=== PATIENT | female | born 1975 | race Caucasian/White ===

== ENCOUNTER 2020-08-17 09:29 | Outpatient (CLI) | payer OTHER, SELFPAY ==
--- NOTE | ~2020-08-17 | MM_ITS ---
EXAMINATION: MM screening priscilla BI w luzma HISTORY: Screening TECHNIQUE: Craniocaudal and mediolateral oblique 3-D tomosynthesis images were obtained and synthetic 2-D images were generated. CAD analysis was submitted and interpreted. COMPARISON: Comparison to multiple prior studies sequentially, with oldest reviewed study dated 12/2013. BREAST PARENCHYMAL COMPOSITION: The breasts are heterogenously dense, which may obscure small masses. FINDINGS: There is no evidence of suspicious mass, calcification, or architectural distortion to sugg est malignancy in either breast. There has been no suspicious interval change. IMPRESSION: 1. No mammographic evidence of malignancy. 2. Recommend routine screening mammography in one year. BI-RADS Category 1: Negative Reviewed, dictated and finalized at location A. [employer]
== END 2020-08-17 09:30 | disposition home or self-care (01) ==
LOC: ANHIMG 09:31
PROVIDERS: PCP Internal Medicine; Visit Provider Obstetrics & Gynecology
DX: Z12.31 Encounter for screening mammogram for malignant neoplasm of breast (principal)
CPT/HCPCS: 77063; 77067

== ENCOUNTER 2020-10-17 09:31 | Emergency (ER) | payer OTHER, SELFPAY ==
--- NOTE | ~2020-10-17 | XR_ITS ---
XR chest 2V DATE: 10/17/2020 10:08 INDICATION: Lower right abdominal pain TECHNIQUE: PA and lateral views COMPARISON: 05/06/2012 PA and lateral chest FINDINGS: Normal heart size. No hilar or mediastinal enlargement. No pulmonary infiltrate or consolid ation, pleural effusion or pulmonary vascular congestion or pneumothorax is detected. Mild thoracic scoliosis. IMPRESSION: No active cardiopulmonary disease Reviewed, dictated and finalized at location A.
--- NOTE | ~2020-10-17 | CT_ITS ---
EXAMINATION: CTA chest PE abdomen pel DATE: 10/17/2020 11:48 INDICATION: Mid chest pain, low abdominal pain. TECHNIQUE: Computed tomography angiography (CTA) of the chest and abdomen was performed with 100 mL O mnipaque-350 intravenous contrast timed to evaluate the pulmonary arteries. Coronal maximum intensity projection 3D-reconstructions were created by the technologist. Automated exposure control and itera tive reconstruction technique were employed. Exam dose: 542.15 mGy-cm total exam DLP. COMPARISON: 10/17/2020 PA and lateral chest FINDINGS: There is diagnostic contrast enhancement of the pulmonary arteries and no evidence of pulmo nary embolism. No thoracic aortic aneurysm or dissection. Normal heart size. Coronary artery calcification. No hilar or mediastinal mass lesion or lymphadenopathy. There is old pulmonary granulomatous disease including calcified left lower lobe pulmonary granulomas , calcified left hilar and mediastinal nodes. No pulmonary infiltrate or consolidation or pulmonary mass lesion. Minimal bilateral apical scarring. The liver, gallbladder, bile ducts, spleen, pancreas, pancreatic duct, and adrenal glands and right k idney are unremarkable. There are scattered up to 8 mm left renal cysts. No urinary tract calculus or hydroureteronephrosis. Normal caliber of the abdominal aorta. No intraperitoneal or retroperitoneal or pelvic mass lesion or adenopathy or ascites. (Measuring up to approximately 1.7 cm. Involuting 1.3 cm right ovarian cyst. The uterus and urinary b ladder are unremarkable. Normal appendix. No bowel obstruction, bowel wall thickening, pneumatosis or intraperitoneal free air . Included skeletal structures are unremarkable. IMPRESSION: Scattered up to 8 mm left renal cysts Up to 1.7 cm left ovarian cyst Involuting 1.3 cm right ovarian cyst Normal appendix Reviewed, dictated and finalized at Location A. Reviewed, dictated and finalized at location A.
--- NOTE | 2020-10-17 09:36 | ECG_ITS ---
Measurements Intervals [place] Rate: 88 P: 82 MT: 128 QRS: 55 QRSD: 86 T: 58 QT: 330 QTc: 399 Interpretive Statements SINUS RHYTHM BASELINE ARTIFACT- II, III, AVL, AVF NORMAL ECG Electronically Signed On 10-17-2020 19:12:36 CDT by Jose A Guevara D.O.
[2020-10-17 09:37] VITALS: BP 171/110; PULSE 100; RESP 20; TEMP 36.8; O2SAT 100
[2020-10-17] MEDS: ASPIRIN 81 MG CHEWABLE TABLET 324 MG PO (09:43)
[2020-10-17 09:53] LABS: Basophils Percent Auto 0.4 % (0.2-1.2); Eosinophils Absolute Auto 0.1 K/mm3 (0-0.3); Eosinophils Percent Auto 0.9 % (0-4.4); Hematocrit 43.2 % (37.0-47.0); Hemoglobin 14.6 g/dL (12.0-15.0); Immature Granulocyte Absolute 0.05 K/mm3 (0.00-0.031); Immature Granulocyte Percent A 0.5 % (0-0.5); Lymphocytes Absolute Auto 3.14 K/mm3 (0.9-3.2); Lymphocytes Percent Auto 32.3 % (18.3-44.2); Mean Corpuscular HGB Conc 33.8 g/dl (32-36); Mean Corpuscular Volume 103.6 fl (80-100); Mean Platelet Volume 10.5 fl (7.4-10.4); Monocytes Absolute Auto 0.9 K/mm3 (0.1-0.6); Monocytes Percent Auto 9.7 % (2.6-8.5); Neutrophils Absolute Auto 5.5 K/mm3 (1.3-6.7); Neutrophils Percent Auto 56.2 % (45.5-73.1); Platelet Count Result 169 k/mm3 (150-375); Red Blood Count 4.17 M/mm3 (4.2-5.4); Red Cell Distribution Width 12.4 % (11.5-14.5); White Blood Count 9.7 K/mm3 (4.5-10.0)
[2020-10-17 10:07] LABS: INR 0.8; Prothrombin Time 12.1 Seconds (11.1-14.7)
[2020-10-17 10:09] LABS: Lipase 90 U/L (23-300)
[2020-10-17 10:13] LABS: Add Urine Microscopic? YES; Appearance Urine Clear (Clear); Bilirubin Urine Negative (Negative); Blood Urine Negative (Negative); Color Urine Yellow (Yellow); Glucose Urine UA Negative (Negative); Ketones Urine Trace mg/dL (Negative); Leukocyte Esterase Ur Negative LEU/UL (Negative); Mucus Urine Rare /lpf; Nitrate Urine Negative (Negative); Protein Urine Negative (Negative); RBC Urine 0-2 /hpf (0-2); Specific Grav Ur 1.009 (1.001-1.035); Squamous Epithelial Cell Urine Occasional /hpf (Few); Urobilinogen Urine Negative mg/dL (<2.0); WBC Urine 0-3 /hpf
[2020-10-17 10:14] LABS: Partial Thromboplastin Time 28.7 SECONDS (22.3-36.8)
[2020-10-17 10:15] LABS: Troponin I < 0.012 ng/mL (0.000-0.034)
[2020-10-17 10:56] LABS: Alanine Aminotransferase 28 U/L (4-35); Albumin Level 4.9 g/dL (3.5-5.1); Alkaline Phosphatase 72 U/L (38-126); Anion Gap 10 mmol/L (8-16); Aspartate Amino Transferase 48 U/L (14-36); Bilirubin,Total 0.8 mg/dL (0.2-1.3); Blood Urea Nitrogen 12 mg/dL (7-17); Carbon Dioxide 25 mmol/L (22-30); Chloride 102 mmol/L (98-107); Estimated CRCL calculation 96 ml/min; Estimated Glomerular Filt Rate > 60; Glucose 107 mg/dL (65-105); Potassium 3.9 mmol/L (3.4-5.0); Sodium 137 mmol/L (137-145)
--- NOTE | 2020-10-17 11:26 | ED.GENADULT ---
HPI - General Adult General Chief complaint: Chest Pain Stated complaint: chest pain Time Seen by Provider: 10/17/20 10:06 Source: patient Mode of arrival: ambulatory Limitations: no limitations History of Present Illness HPI narrative: Pt presents for evaluation of left sided chest pain for the past few days. Pain occurs three to four times per day and lasts seconds to minutes. Pain is stabbing, without numerical rating. No radicular component to the pain. No shortness of breath, cough, or leg swelling. She states she sees genetic engineer, Dr Fletcher, in [place]. She states she had a negative stress test and ECHO about two years ago. She states that she later had a heart cath that showed 20% stenosis in one of the vessels. She was evaluated by cardiology about 1.5 months ago for chest pain. It was suspected that her symptoms were 2/2 GERD. She was advised to take prilosec and return in one week for reassessment. She did not take the medication nor did she follow up. She does have a history of hyperlipidemia but denies underlying hypertension and DM. She smokes 1/2 ppd. No hx of VTE. No recently surgeries. Not on exogenous estrogen. She also reports RLQ pain for the last week. Pain is fairly constant, without descriptive quality. She denies pain at presents time. No fever, chills, nausea, vomiting, change in bowel pattern. She does drink daily between 4-12 drinks per day. Related Data Home Medications Medication Instructions Recorded Confirmed alprazolam 0.5 mg PO TID 10/17/20 10/17/20 atorvastatin 20 mg PO DAILY 10/17/20 10/17/20 hydrocodone-acetaminophen 1 tablet PO TID 10/17/20 10/17/20 Allergies Allergy/AdvReac Type Severity Reaction Status Date / Time No Known Allergies Allergy Verified 10/17/20 09:45 Review of Systems Review of Systems: Narrative: CONSTITUTIONAL: Denies fever, chills, or sweats. EYES: Denies visual changes, redness, or discharge. ENT: Denies rhinorrhea, congestion, sore throat, or otalgia. CARDIOVASCULAR: Reports chest pain. Denies palpitations, or edema. RESPIRATORY: Denies cough or dyspnea. GASTROINTESTINAL: Reports right lower quadrant pain. Denies nausea, vomiting, or diarrhea. GENITOURINARY: Denies dysuria or hematuria. SKIN: Denies rash or itching. MUSCULOSKELETAL: Denies back pain, joint pain, or myalgia. NEUROLOGIC: Denies headache, numbness, dizziness, or weakness. PSYCHIATRIC: Denies anxiety or depression. PMF Past Medical History Medical History Hyperlipidemia Tobacco use Surgical History Surgical History History of section Family History Family History Mother No pertinent family history Social History Social History Smoking packs per day: 0.5 Smoking cigarettes per day: 10.0 Smoking status: Current every day smoker Alcohol intake: current Alcohol use details: 4-12 drinks per day Substance use: never Living arrangements: with family Gender identity (if verbalized by the patient): Female Sexual Orientation (if Verbalized by the Patient): Straight or Heterosexual Spiritual care concerns: No Exam Narrative: Exam Narrative: GENERAL: Well-appearing, well-nourished, and in no acute distress. HEAD: Normocephalic, atraumatic. EYES: PERRLA and EOMI. ENT: Nares clear, no rhinorrhea or epistaxis. Mucous membranes moist. Oropharynx without tonsillar hypertrophy exudate or other lesions. Bilateral TMs pearly germain nonbulging NECK: Supple. No adenopathy or masses. No carotid bruits or JVD CHEST: Clear to auscultation. No respiratory distress. No wheezes rales or rhonchi HEART: Regular rate and rhythm. No murmur heard. Normal peripheral pulses. ABDOMEN: Soft, nontender, nondistended, normal active bowel sounds. EXTREMITIES: Normal range of motion. N
[2020-10-17] MEDS: PANTOPRAZOLE 40 MG TABLET PO (11:54)
[2020-10-17 12:19] VITALS: BP 124/90; PULSE 82; O2SAT 100
--- NOTE | 2020-10-17 12:19 | PC.NURSE ---
Patient in room finishing snack that significant other brought to her.
[2020-10-17 13:10] LABS: Troponin I < 0.012 ng/mL (0.000-0.034)
[2020-10-17 13:48] VITALS: BP 118/88; PULSE 82; RESP 20; O2SAT 99
== END 2020-10-17 13:50 | disposition home or self-care (01) ==
PROVIDERS: Emergency Medicine; Emergency Provider Nurse Practitioner; PCP Internal Medicine
DX: R07.9 Chest pain, unspecified (principal); N83.202 Unspecified ovarian cyst, left side; N83.201 Unspecified ovarian cyst, right side; K21.9 Gastro-esophageal reflux disease without esophagitis; R10.31 Right lower quadrant pain; E78.5 Hyperlipidemia, unspecified; F17.210 Nicotine dependence, cigarettes, uncomplicated; N28.1 Cyst of kidney, acquired
CPT/HCPCS: 36415; 71046; 71275; 74177; 80053; 81001; 81025; 83690; 84484; 85025; 85610; 85730; 93005; 99284; A9270; Q9967

== ENCOUNTER 2020-11-11 10:05 | Emergency (ER) | payer OTHER, SELFPAY ==
[2020-11-11] VITALS (17 sets, daily range): BP systolic 132–185; BP diastolic 76–92; PULSE 63–89; RESP 11–21; TEMP 36.5; O2SAT 99–100
--- NOTE | ~2020-11-11 | XR_ITS ---
EXAMINATION: XR chest 2V DATE: 11/11/2020 12:37 INDICATION: Right chest pain. Shortness of breath. TECHNIQUE: Frontal and lateral views of the chest were obtained. COMPARISON: Chest 2 views 10/17/2020 FINDINGS: A calcified left lung nodule and calcified left hilar lymph nodes are consistent with old g ranulomatous disease. No pleural effusion or pneumothorax. The heart size is normal. IMPRESSION: 1. No acute cardiopulmonary disease. Reviewed, dictated and finalized at location B.
--- NOTE | ~2020-11-11 | CT_ITS ---
EXAMINATION: CT abdomen pelvis w con DATE: 11/11/2020 13:52 INDICATION: Upper abdominal pain. TECHNIQUE: Computed tomography (CT) of the abdomen and pelvis was performed with 100 mL Omnipaque 350 intravenous contrast. Automated exposure control and iterative reconstruction technique were employe d. The dose-length product was 386.62 mGy-cm. COMPARISON: CT abdomen and pelvis 10/17/2020 FINDINGS: The visualized portions of the lung bases demonstrate minimal atelectasis. No pleural effus ion. The heart size is normal. No pericardial effusion. The liver and gallbladder are normal. Calcifi cations in the spleen are consistent with old granulomatous disease. The pancreas, adrenal glands, an d right kidney are normal. There are cysts in left kidney measuring up to 7 mm. There are no dilated loops of bowel. The appendix is normal. Again seen are 2 diverticula of the proximal duodenum. There is new wall thickening of the proximal duodenum. There is mild wall thickening of the nearby hepatic flexure of the colon. There is fat stranding between and around both of these areas. There is trace p elvic ascites. There are no pathologically enlarged lymph nodes. There is moderate right hip osteoart hritis and mild left hip osteoarthritis. IMPRESSION: 1. Inflammation of the proximal duodenum and hepatic flexure of the colon, which are in close proximi ty. The duodenum is more involved suggesting these findings began as duodenitis. Less likely, the ronald gin could be colonic diverticulitis. Reviewed, dictated and finalized at location B. IMPRESSION: 1. Inflammation of the proximal duodenum and hepatic flexure of the colon, whic h are in close proximity. The duodenum is more involved suggesting these findin gs began as duodenitis. Less likely, the origin could be colonic diverticulitis .
--- NOTE | ~2020-11-11 | US_ITS ---
EXAMINATION: US abdomen limited DATE: 11/11/2020 13:18 INDICATION: Right upper quadrant pain TECHNIQUE: Multiple grayscale and Doppler ultrasound images of the abdomen were obtained. COMPARISON: CT, 10/17/2020 FINDINGS: Bowel gas obscures visualization of the pancreas. The visualized portions of the pancreas a re unremarkable. The liver demonstrates increased echogenicity, heterogenous echotexture, and decreas ed through transmission. No surface nodularity. Normal hepatopetal flow in the main portal vein. The gallbladder is normal with no abnormal wall thickening, pericholecystic fluid or stones. The normal c ommon bile duct measures 5 mm. There was no sonographic Barber sign. IMPRESSION: 1. Normal sonographic study of the gallbladder. 2. Diffuse hepatic steatosis. Reviewed, dictated and finalized at location A.
--- NOTE | 2020-11-11 10:15 | ECG_ITS ---
Measurements Intervals [place] Rate: 78 P: 68 [place]: 157 QRS: 52 QRSD: 80 T: 56 QT: 356 QTc: 408 Interpretive Statements SINUS RHYTHM NORMAL ECG Electronically Signed On 11-11-2020 10:17:37 CDT by Jose A Guevara D.O.
[2020-11-11 10:32] LABS: Basophils Percent Auto 0.5 % (0.2-1.2); Eosinophils Absolute Auto 0.1 K/mm3 (0-0.3); Eosinophils Percent Auto 1.2 % (0-4.4); Hematocrit 39.7 % (37.0-47.0); Hemoglobin 13.5 g/dL (12.0-15.0); Immature Granulocyte Absolute 0.02 K/mm3 (0.00-0.031); Immature Granulocyte Percent A 0.2 % (0-0.5); Lymphocytes Absolute Auto 2.38 K/mm3 (0.9-3.2); Lymphocytes Percent Auto 29.2 % (18.3-44.2); Mean Corpuscular Hemoglobin 34.4 pg (26-34); Mean Platelet Volume 11.4 fl (7.4-10.4); Monocytes Absolute Auto 0.6 K/mm3 (0.1-0.6); Monocytes Percent Auto 7.9 % (2.6-8.5); Platelet Count Result 144 k/mm3 (150-375); Red Blood Count 3.93 M/mm3 (4.2-5.4); Red Cell Distribution Width 13.2 % (11.5-14.5); White Blood Count 8.2 K/mm3 (4.5-10.0)
[2020-11-11 10:35] LABS: Add Urine Microscopic? YES; Appearance Urine Clear (Clear); Bilirubin Urine Negative (Negative); Blood Urine Negative (Negative); Color Urine Yellow (Yellow); Glucose Urine UA Negative (Negative); Ketones Urine Negative (Negative); Leukocyte Esterase Ur Negative LEU/UL (Negative); Nitrate Urine Negative (Negative); Protein Urine Negative (Negative); RBC Urine 0-2 /hpf (0-2); Specific Grav Ur 1.017 (1.001-1.035); Squamous Epithelial Cell Urine Moderate /hpf (Few); Urobilinogen Urine Negative mg/dL (<2.0)
[2020-11-11 10:59] LABS: Alanine Aminotransferase 27 U/L (4-35); Albumin Level 4.6 g/dL (3.5-5.1); Alkaline Phosphatase 68 U/L (38-126); Anion Gap 7 mmol/L (8-16); Aspartate Amino Transferase 57 U/L (14-36); Bilirubin,Total 0.7 mg/dL (0.2-1.3); Blood Urea Nitrogen 12 mg/dL (7-17); Calcium 9.4 mg/dL (8.4-10.2); Carbon Dioxide 25 mmol/L (22-30); Chloride 108 mmol/L (98-107); Estimated CRCL calculation 137 ml/min; Estimated Glomerular Filt Rate > 60; Glucose 93 mg/dL (65-105); Lipase 229 U/L (23-300); Potassium 4.7 mmol/L (3.4-5.0); Sodium 140 mmol/L (137-145)
--- NOTE | 2020-11-11 11:28 | ED.ABDPAIN ---
HPI - Abdominal Pain General Chief Complaint: Abdominal Pain Stated Complaint: upper abd pain Time Seen by Provider: 11/11/20 11:08 Source: patient Mode of arrival: ambulatory Limitations: no limitations History of Present Illness HPI narrative: This is a 45-year-old female that presents to the emergency department for upper abdominal pain present since yesterday. Reports the pain is sharp and intermittent in nature. It lasts very briefly. Reports that occasionally radiates into her chest. No known alleviating or exacerbating factors. Reports she was recently started on a medication for reflux. Reports occasional shortness of breath. Denies fever, cough, vomiting, dysuria, or hematuria. Related Data Home Medications Medication Instructions Recorded Confirmed alprazolam 0.5 mg PO TID 10/17/20 10/17/20 atorvastatin 20 mg PO DAILY 10/17/20 10/17/20 hydrocodone-acetaminophen 1 tablet PO TID 10/17/20 10/17/20 Allergies Allergy/AdvReac Type Severity Reaction Status Date / Time No Known Allergies Allergy Verified 11/11/20 10:23 Review of Systems Review of Systems: Narrative: CONSTITUTIONAL: Denies fever CARDIOVASCULAR: Reports chest pain. Denies edema. RESPIRATORY: Reports dyspnea. Denies cough GASTROINTESTINAL: Reports abdominal pain, nausea. Denies vomiting GENITOURINARY: Denies dysuria or hematuria. All systems reviewed & are unremarkable except as noted in HPI and below PMFSH Past Medical History Medical History Hyperlipidemia Tobacco use Surgical History Surgical History History of section Family History Family History Mother No pertinent family history Social History Social History Smoking packs per day: 0.5 Smoking cigarettes per day: 10.0 Smoking status: Current every day smoker Alcohol intake: current Substance use: never Gender identity (if verbalized by the patient): Female Spiritual care concerns: No Exam Narrative: Exam Narrative: GENERAL: Well-appearing, well-nourished, and in no acute distress. HEAD: Normocephalic, atraumatic. EYES: EOMI. ENT: Mucous membranes moist. Oropharynx without tonsillar hypertrophy exudate or other lesions. CHEST: Clear to auscultation. No respiratory distress. No wheezes rales or rhonchi HEART: Regular rate and rhythm. No murmur heard. Normal peripheral pulses. ABDOMEN: Soft, nondistended, normal active bowel sounds. Tender to palpation of the right upper quadrant, without guarding. No CVA tenderness EXTREMITIES: Normal range of motion. No edema. SKIN: Warm, dry, no rash. NEURO: No focal deficits. Alert and oriented x3. PSYCH: Normal mood and affect Course Vital Signs Vital signs: Vital Signs Temperature 97.7 F 11/11/20 10:11 Pulse Rate 88 11/11/20 10:11 Respiratory Rate 18 11/11/20 10:11 Blood Pressure 185/92 H 11/11/20 10:11 Pulse Oximetry 100 11/11/20 10:11 Temperature 97.7 F 11/11/20 10:11 Pulse Rate 78 11/11/20 14:06 Respiratory Rate 18 11/11/20 14:06 Blood Pressure 158/76 H 11/11/20 14:06 Pulse Oximetry 99 11/11/20 14:06 MDM - Abdominal Pain MDM Narrative Medical decision making narrative: Patient presents to the ER for mid abdominal pain present over the last couple of days. She is afebrile and nontoxic-appearing. Vitals are stable. CBC is without leukocytosis. Metabolic panel without concerning findings. Lipase is normal. UA without evidence of infection. Bedside test is negative. D-dimer and troponin are negative. No concerning changes on EKG. Chest x-ray is without acute cardiopulmonary findings. Right upper quadrant ultrasound shows a normal gallbladder and diffuse hepatic steatosis. CT scan of the abdomen pelvis shows duodenitis versus diverticulitis. Patient instructed to continue her pa
[2020-11-11] MEDS: FAMOTIDINE 20 MG/2 ML VIAL IV PUSH (11:42)
[2020-11-11] MEDS: ONDANSETRON INJ 4 MG/2 ML VIAL IV PUSH (11:43)
[2020-11-11 12:13] LABS: Troponin I < 0.012 ng/mL (0.000-0.034)
[2020-11-11 12:15] LABS: INR 0.9; Prothrombin Time 12.9 Seconds (11.1-14.7)
[2020-11-11 12:16] LABS: Partial Thromboplastin Time 29.7 SECONDS (22.3-36.8)
[2020-11-11 12:18] LABS: D Dimer 0.42 ug/mL (<0.48)
== END 2020-11-11 14:32 | disposition home or self-care (01) ==
PROVIDERS: Physician Assistant; Emergency Provider Emergency Medicine; PCP Internal Medicine
DX: K57.92 Diverticulitis of intestine, part unspecified, without perforation or abscess without bleeding (principal); E78.5 Hyperlipidemia, unspecified; F17.210 Nicotine dependence, cigarettes, uncomplicated; K76.0 Fatty (change of) liver, not elsewhere classified
CPT/HCPCS: 36415; 71046; 74177; 76705; 80053; 81001; 81025; 83690; 84484; 85025; 85380; 85610; 85730; 93005; 96365; 96375; 99284; J0131; J2405; Q9967

== ENCOUNTER 2020-12-09 09:16 | Emergency (ER) | payer OTHER, SELFPAY ==
--- NOTE | ~2020-12-09 | CT_ITS ---
EXAMINATION: CT brain wo con INDICATION: Headache COMPARISON: None TECHNIQUE: Standard unenhanced head CT. The dose-length product (DLP) was 605.33 mGy-cm. The mA was a djusted according to patient size. Iterative reconstruction technique was employed. FINDINGS: There is no intracranial hemorrhage, acute infarction, or abnormal mass lesion. The ventric les are normal. There is no abnormal mass effect or midline shift. The germain-white matter differentiat ion is normal. The basal cisterns are patent. A calcification is noted in the right transverse sinus. The orbits are normal. Contrast from earlier abdominal CT partially opacifies the intracranial vascu lar structures. There is a polyp or mucous retention cyst in the right sphenoid sinus. IMPRESSION: 1. No acute intracranial abnormality. Reviewed, dictated and finalized at location A.
--- NOTE | ~2020-12-09 | CT_ITS ---
EXAMINATION: CT abdomen pelvis w con DATE: 12/09/2020 11:25 INDICATION: Right abdominal pain. Bloating. Diarrhea. History of diverticulitis. TECHNIQUE: Computed tomography (CT) of the abdomen and pelvis was performed with 100 cc Omnipaque 350 intravenous contrast. The dose-length product was 243.36 mGy-cm. Automated exposure control and iter ative reconstruction technique were employed. COMPARISON: CT dated 11/11/2020. FINDINGS: Lung bases are unremarkable. Heart size normal. No significant pleural or pericardial effus ion. Mild atherosclerosis of the aorta. No aneurysm. No lymphadenopathy. Fatty infiltration of the liver. The spleen, pancreas, adrenal glands and right kidney are unremarkab le. Small subcentimeter hypodensities of the left kidney, most likely benign cysts. No significant hy dronephrosis. Gallbladder is present. Nonobstructive bowel gas pattern. Normal appendix. No free air or free fluid. No abnormal pelvic mass es or fluid collections. No acute osseous abnormality. There is osteoarthritis of the hips, right gre ater than left. IMPRESSION: 1. No acute abdominal abnormality. Reviewed, dictated and finalized at location B.
[2020-12-09 09:33] VITALS: BP 172/92; PULSE 87; RESP 13; TEMP 36.7; O2SAT 97
[2020-12-09 09:36] VITALS: PULSE 90
[2020-12-09 09:46] LABS: Basophils Absolute Auto 0.1 K/mm3 (0.0-0.1); Basophils Percent Auto 0.7 % (0.2-1.2); Eosinophils Absolute Auto 0.1 K/mm3 (0-0.3); Eosinophils Percent Auto 1.2 % (0-4.4); Hematocrit 42.1 % (37.0-47.0); Hemoglobin 14.3 g/dL (12.0-15.0); Immature Granulocyte Absolute 0.03 K/mm3 (0.00-0.031); Immature Granulocyte Percent A 0.4 % (0-0.5); Lymphocytes Absolute Auto 2.51 K/mm3 (0.9-3.2); Lymphocytes Percent Auto 36.4 % (18.3-44.2); Mean Corpuscular Hemoglobin 34.8 pg (26-34); Mean Corpuscular Volume 102.4 fl (80-100); Mean Platelet Volume 10.5 fl (7.4-10.4); Monocytes Absolute Auto 0.6 K/mm3 (0.1-0.6); Monocytes Percent Auto 8.6 % (2.6-8.5); Neutrophils Absolute Auto 3.6 K/mm3 (1.3-6.7); Neutrophils Percent Auto 52.7 % (45.5-73.1); Platelet Count Result 141 k/mm3 (150-375); Red Blood Count 4.11 M/mm3 (4.2-5.4); Red Cell Distribution Width 13.7 % (11.5-14.5); White Blood Count 6.9 K/mm3 (4.5-10.0)
[2020-12-09] MEDS: SODIUM CHLORIDE 0.9% IV 1,000 ML 999 ML IV CONT (09:59)
[2020-12-09] MEDS: ONDANSETRON INJ 4 MG/2 ML VIAL IV PUSH (10:00)
[2020-12-09 10:01] VITALS: BP 114/74; PULSE 87; RESP 10; O2SAT 94
--- NOTE | 2020-12-09 10:04 | ECG_ITS ---
Measurements Intervals [place] Rate: 78 P: 74 [place]: 137 QRS: 57 QRSD: 81 T: 63 QT: 376 QTc: 429 Interpretive Statements SINUS RHYTHM WITH SINUS ARRHYTHMIA BASELINE WANDER- II, III NORMAL ECG Electronically Signed On 12-09-2020 10:27:29 CDT by Jose A Guevara D.O.
[2020-12-09 10:06] LABS: Alanine Aminotransferase 54 U/L (4-35); Albumin Level 4.9 g/dL (3.5-5.1); Alkaline Phosphatase 99 U/L (38-126); Anion Gap 14 mmol/L (8-16); Aspartate Amino Transferase 140 U/L (14-36); Bilirubin,Total 0.4 mg/dL (0.2-1.3); Blood Urea Nitrogen 11 mg/dL (7-17); Carbon Dioxide 22 mmol/L (22-30); Chloride 105 mmol/L (98-107); Estimated CRCL calculation 113 ml/min; Estimated Glomerular Filt Rate > 60; Glucose 91 mg/dL (65-105); Potassium 4.1 mmol/L (3.4-5.0); Sodium 141 mmol/L (137-145)
--- NOTE | 2020-12-09 10:11 | ED.GENADULT ---
HPI - General Adult General Chief complaint: Unspecified Stated complaint: diarrhea, abd pain, left hand numb Time Seen by Provider: 12/09/20 09:31 Source: patient Mode of arrival: ambulatory Limitations: no limitations History of Present Illness HPI narrative: Patient is a 45 year old female who presents with multiple complaints. Patient reports abdominal pain, bloating, nausea, diarrhea and headache starting last pm. Patient reports being seen and treated for diverticulitis last month. She reports bloating x 1 week. She reports sudden onset of diarrhea early this am and nausea without vomiting. Patient denies chest pain or shortness of breath. She reports she does drink daily and approximately 5-10 beers a day. Patient also reports she does smoke cigarettes. MD complaint: abdominal pain Related Data Home Medications Medication Instructions Recorded Confirmed alprazolam 0.5 mg PO TID 10/17/20 10/17/20 atorvastatin 20 mg PO DAILY 10/17/20 10/17/20 hydrocodone-acetaminophen 1 tablet PO TID 10/17/20 10/17/20 Allergies Allergy/AdvReac Type Severity Reaction Status Date / Time No Known Allergies Allergy Verified 12/09/20 09:38 Review of Systems Review of Systems: Narrative: CONSTITUTIONAL: Denies fever, chills, or sweats. EYES: Denies visual changes, redness, or discharge. ENT: Denies rhinorrhea, congestion, sore throat, or otalgia. CARDIOVASCULAR: Denies chest pain, palpitations, or edema. RESPIRATORY: Denies cough or dyspnea. GASTROINTESTINAL: Reports abdominal pain, nausea and diarrhea. GENITOURINARY: Denies dysuria or hematuria. SKIN: Denies rash or itching. MUSCULOSKELETAL: Denies back pain, joint pain, or myalgia. NEUROLOGIC: Reports headache, reports intermittent tingling to left arm. Denies dizziness or weakness. PSYCHIATRIC: Denies anxiety or depression. [facility] Past Medical History Medical History Hyperlipidemia Tobacco use Surgical History Surgical History History of section Family History Family History Mother No pertinent family history Social History Social History (Updated 12/09/20 @ 10:20 by SAGE Mccarty) Smoking packs per day: 0.5 Smoking cigarettes per day: 10.0 Smoking status: Current every day smoker Alcohol intake: current Substance use: current Substance use type: marijuana Other substance usage details: occasional Gender identity (if verbalized by the patient): Female Spiritual care concerns: No Comments At the time of signature, I have reviewed and agree with nursing past medical, surgical, social, and family history unless otherwise noted. Please see nursing chart for further information. There is no relevant family history pertinent to the presenting complaint. Exam Narrative: Exam Narrative: GENERAL: Well-appearing, well-nourished, and in no acute distress. HEAD: Normocephalic, atraumatic. EYES: EOMI. No redness or drainage. Conjunctiva are normal. ENT: Mucous membranes pink and moist. CHEST: No respiratory distress. Clear to auscultation. HEART: Regular rate and rhythm. No murmur appreciated. Normal peripheral pulses. GI: Soft, right r tenderness with palpation. Mildly distended. Bowel sounds normal in all quadrants. MUSCULOSKELETAL: No bony tenderness. EXTREMITIES: Normal range of motion. No edema. SKIN: Warm, dry, no rash. NEURO: No focal deficits. Alert and oriented x3. Gait steady. PSYCH: Normal affect. No signs of depression or anxiety. Course Vital Signs Vital signs: Vital Signs Temperature 36.7 C 12/09/20 09:33 Pulse Rate 87 12/09/20 09:33 Respiratory Rate 13 12/09/20 09:33 Blood Pressure 172/92 H 12/09/20 09:33 Pulse Oximetry 97 12/09/20 09:33 Temperature 36.7 C 12/09/20 09:33 Pulse Rate 78 12/09/20 13:50 Respiratory Rate 19 12/09/20 13:50 Blood Pressure 114/60 0
[2020-12-09 10:19] LABS: Lipase 91 U/L (23-300)
[2020-12-09 10:45] LABS: Add Urine Microscopic? YES; Appearance Urine Cloudy (Clear); Bilirubin Urine Negative (Negative); Blood Urine Negative (Negative); Color Urine Yellow (Yellow); Glucose Urine UA Negative (Negative); Ketones Urine Trace mg/dL (Negative); Leukocyte Esterase Ur Negative LEU/UL (Negative); Mucus Urine Rare /lpf; Nitrate Urine Negative (Negative); Protein Urine 2+ mg/dL (Negative); Specific Grav Ur 1.025 (1.001-1.035); Squamous Epithelial Cell Urine Occasional /hpf (Few); Urobilinogen Urine Negative mg/dL (<2.0); WBC Urine 0-3 /hpf
[2020-12-09 11:08] VITALS: BP 126/77; PULSE 71; RESP 15; O2SAT 98
[2020-12-09 12:09] VITALS: BP 113/84; PULSE 84; RESP 16; O2SAT 98
[2020-12-09 13:50] VITALS: BP 114/60; PULSE 78; RESP 19; O2SAT 100
== END 2020-12-09 13:51 | disposition home or self-care (01) ==
PROVIDERS: Emergency Provider Nurse Practitioner; PCP Internal Medicine
DX: R19.7 Diarrhea, unspecified (principal); R10.9 Unspecified abdominal pain; R11.0 Nausea; R51.9 Headache, unspecified; E78.5 Hyperlipidemia, unspecified; F17.210 Nicotine dependence, cigarettes, uncomplicated
CPT/HCPCS: 36415; 70450; 74177; 80053; 81001; 83690; 85025; 93005; 96361; 96374; 96375; 99284; J0131; J2405; J7030; Q9967

== ENCOUNTER 2022-08-12 19:20 | Emergency (ER) | payer OTHER, SELFPAY ==
--- NOTE | ~2022-08-12 | XR_ITS ---
EXAM: XR ankle LT 2V, XR tibia fibula LT 2V DATE: 08/12/2022 20:14 HISTORY: fall, PAIN, SWELLING . COMPARISON: None available. FINDINGS: Decreased mineralization. Distracted and mildly comminuted medial malleolus fracture. Post eriorly displaced oblique fracture of the distal left fibula at the level of the joint line (Kilpatrick ty pe B). Mildly distracted fracture of the posterior malleolus. Medial plafond and widening. No lytic o r blastic lesion. Joint spaces are maintained. No erosion or periosteal change. Soft tissue swelling about the ankle. IMPRESSION: Trimalleolar left ankle fracture. Reviewed, dictated and finalized at location K. IGERATION SYSTEMS INSTALLER IMPRESSION: Trimalleolar left ankle fracture.
[2022-08-12 19:44] VITALS: BP 143/88; PULSE 98; RESP 14; TEMP 36.5; O2SAT 98
--- NOTE | 2022-08-12 20:06 | PC.NURSE ---
Triage note reviewed and confirmed. 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 cap refill intact, pedal pulse intact.
[2022-08-12] MEDS: HYDROcodone/acetaminophen (*CRX) 5-325 MG TABLET 1 TAB PO (20:52)
--- NOTE | 2022-08-12 21:33 | ED.FALL ---
HPI - Fall General Chief Complaint: Fall Stated Complaint: Fall, L foot injury Time Seen by Provider: 08/12/22 20:22 History of Present Illness HPI Narrative: Patient is a 47-year-old female here for evaluation of left ankle pain and swelling over the past hour. Patient states that she got her foot caught in the side of her tractor and she fell over with her foot still stuck in the side. She reported significant deformity at that time but her pulled the foot back into place. Since then she has had pain and swelling at the site and has been unable to bear any weight. She denies any head injury or loss of consciousness in the fall. EtOH on board tonight. Related Data Home Medications Medication Instructions Recorded Confirmed alprazolam 0.5 mg tablet 0.5 mg PO TID 10/17/20 10/17/20 atorvastatin 20 mg tablet 20 mg PO DAILY 10/17/20 10/17/20 hydrocodone 5 mg-acetaminophen 325 1 tablet PO TID 10/17/20 10/17/20 mg tablet Allergies Allergy/AdvReac Type Severity Reaction Status Date / Time No Known Allergies Allergy Verified 08/12/22 19:48 Review of Systems Review of Systems: Gen.: Denies fevers or chills Eyes: Denies eye pain or visual change ENT: Denies congestion Respiratory: Denies shortness of breath or cough CV: Denies chest pain or palpitations GI: Denies abdominal pain nausea, emesis or diarrhea denies burning, urgency, frequency or hematuria Musculoskeletal: Reports left ankle pain and swelling Neuro: Denies numbness, tingling, weakness or focal weakness Skin: Denies rash Except as documented, all other systems reviewed and negative [facility] Past Medical History Medical History Hyperlipidemia Tobacco use Surgical History Surgical History History of section Family History Family History Mother No pertinent family history Social History Social History (Updated 12/09/20 @ 10:20 by Tere Flowers, [employer]) Smoking packs per day: 0.5 Smoking cigarettes per day: 10.0 Smoking status: Current every day smoker Alcohol intake: current Alcohol use details: Reports 5-10 beers daily Substance use: current Substance use type: marijuana Other substance usage details: occasional Living arrangements: with family Gender identity (if verbalized by the patient): Female Sexual Orientation (if Verbalized by the Patient): Straight or Heterosexual Spiritual care concerns: No Exam Narrative: Gen: Alert, oriented, no acute disease Eyes: EOMI, no icterus Pulm: Respirations even and unlabored, symmetric thorax expansion, no audible stridor or visible cyanosis CV: Strong pedal pulses GI: No distension, no voluntary/involuntary guarding Neuro: AOx4, moves all extremities without apparent difficulty or weakness, follows commands MSK: Patient has significant soft tissue swelling to the left medial and lateral malleolus. She has tenderness to palpation along the medial and lateral malleolus. Compartments are soft. There is no tenderness to palpation along the patella or proximal hip Skin: No jaundice, no visible bruising, rashes, lesions or wounds on exposed skin Psych: Normal mood/affect, insight/judgement good, adequate fund of knowledge, recent/remote memory intact Course Vital Signs Vital signs: Vital Signs Temperature 97.7 F 08/12/22 19:44 Pulse Rate 98 08/12/22 19:44 Respiratory Rate 14 08/12/22 19:44 Blood Pressure 143/88 H 08/12/22 19:44 Pulse Oximetry 98 08/12/22 19:44 Oxygen Delivery Room Air 08/12/22 19:44 Temperature 98.9 F 08/12/22 21:50 Pulse Rate 90 08/12/22 21:50 Respiratory Rate 18 08/12/22 21:50 Blood Pressure 129/69 08/12/22 21:50 Pulse Oximetry 99 08/12/22 21:50 Oxygen Delivery Room Air 08/12/22 19:44 MDM - Fall MDM Narrative Medical decision making narrative: Patient is a 4
[2022-08-12 21:50] VITALS: BP 129/69; PULSE 90; RESP 18; TEMP 37.2; O2SAT 99
== END 2022-08-12 21:50 | disposition home or self-care (01) ==
PROVIDERS: Emergency Provider Physician Assistant; PCP Internal Medicine
DX: S82.852A Displaced trimalleolar fracture of left lower leg, initial encounter for closed fracture (principal); E78.5 Hyperlipidemia, unspecified; F17.210 Nicotine dependence, cigarettes, uncomplicated; W30.89XA Contact with other specified agricultural machinery, initial encounter
CPT/HCPCS: 29515; 73590; 73600; 99284; A9270

== ENCOUNTER 2022-08-16 16:20 | Outpatient (CLI) | payer OTHER, SELFPAY ==
--- NOTE | ~2022-08-16 | CT_ITS ---
Noncontrast CT scan of the left ankle CLINICAL HISTORY: Trimalleolar fracture TECHNIQUE: Axial noncontrast imaging of the left ankle was performed. Sagittal and coronal reformatte d images were constructed. Dose reduction technique was used on this scan by utilizing automated expo sure control and iterative reconstruction technique. The dose-length product (DLP) was 358.20 mGy-cm. COMPARISON: Plain radiographs dated 08/12/2022 Findings: There is an oblique, mildly comminuted fracture of the base of the medial malleolus, with m ild displacement of approximately 4 mm. There is an oblique, comminuted fracture of the lateral malle olus, at and just proximal to the level of the ankle mortise. Fracture fragments are minimally displa karina overall. There is a small, nearly nondisplaced intra-articular fracture of the posterior malleolu s, best seen on lateral images. Alignment of the ankle mortise remains near anatomic. Remaining osseous structures and joint spaces are intact. There is diffuse soft tissue swelling about the ankle. Visualized tendons are grossly intact. IMPRESSION: Trimalleolar fractures, overall minimally to mildly displaced, as detailed above. Alignment is simila r to prior exam. Reviewed, dictated and finalized at location M. L OPERATOR BATCH OR CONTINUOUS IMPRESSION: Trimalleolar fractures, overall minimally to mildly displaced, as detailed abov e. Alignment is similar to prior exam.
== END 2022-08-16 16:21 | disposition home or self-care (01) ==
PROVIDERS: PCP Internal Medicine; Visit Provider Orthopaedic Surgery
DX: S82.852D Displaced trimalleolar fracture of left lower leg, subsequent encounter for closed fracture with routine healing (principal); X58.XXXD Exposure to other specified factors, subsequent encounter
CPT/HCPCS: 73700

== ENCOUNTER 2023-11-17 08:33 | Emergency (ER) | payer OTHER, SELFPAY ==
[2023-11-17 08:51] VITALS: BP 125/102; PULSE 99; RESP 16; TEMP 36.4; O2SAT 99
--- NOTE | 2023-11-17 08:58 | ED.GENADULT ---
HPI - General Adult General Chief complaint: Upper Respiratory Infection Stated complaint: VOMITING/SORE THROAT/HARD TO SWALLOW/SWELLING Time Seen by Provider: 11/17/23 08:58 Source: patient Mode of arrival: ambulatory Limitations: no limitations History of Present Illness HPI narrative: 48-year-old female patient presents to the [facility] with complaints of sore throat for the past 5 days. Patient states Sunday she has had some vomiting and then started with a sore throat on . Patient states she has some swollen lymph nodes and yesterday had some chills but denies any fevers that she is aware of. Patient is an active smoker and active heavy drinker. Patient states she does have pain when swallowing. Patient states she was diagnosed with strep last month and her primary provider did give her amoxicillin for her symptoms. Related Data Allergies Allergy/AdvReac Type Severity Reaction Status Date / Time No Known Allergies Allergy Verified 11/17/23 08:42 Review of Systems Review of Systems: CONSTITUTIONAL: Denies fever, positive chills, denies sweats. EYES: Denies visual changes, redness, or discharge. ENT: Denies rhinorrhea, congestion, positive sore throat, pain denies otalgia. CARDIOVASCULAR: Denies chest pain, palpitations, or edema. RESPIRATORY: Denies cough or dyspnea. GASTROINTESTINAL: Denies abdominal pain, nausea, positive vomiting, or diarrhea. GENITOURINARY: Denies dysuria or hematuria. SKIN: Denies rash or itching. MUSCULOSKELETAL: Denies back pain, joint pain, or myalgia. NEUROLOGIC: Denies headache, numbness, or weakness. PSYCHIATRIC: Denies anxiety or depression. [facility] Past Medical History Medical History (Updated 11/17/23 @ 09:13 by SAGE Brown) Asthma Chronic sinusitis Hyperlipidemia Tobacco use Trimalleolar fracture Surgical History Surgical History History of section Family History Family History Mother No pertinent family history Social History Social History Smoking packs per day: 0.5 Smoking cigarettes per day: 10.0 Smoking status: Current every day smoker Alcohol intake: current Alcohol use details: Reports 5-10 beers daily Substance use: current Substance use type: marijuana Other substance usage details: occasional Living arrangements: with family Gender identity (if verbalized by the patient): Female Sexual Orientation (if Verbalized by the Patient): Straight or Heterosexual Spiritual care concerns: No Comments At the time of my signature I agree with nursing past medical history, surgical, social, and family history. There is no relevant family history pertinent to the presenting complaint. Exam Narrative: GENERAL: ill-appearing, well-nourished, and in no acute distress. HEAD: Normocephalic, atraumatic. EYES: PERRLA and EOMI. ENT: Nares clear, no rhinorrhea or epistaxis. Mucous membranes moist. posterior pharynx with erythema and what appears to be some white patch ulcers to the top of the pharynx. 2+ tonsillar enlargement noted to the right side NECK: Supple. cervical lymphadenopathy and tenderness noted to right side CHEST: expiratory wheezing noted to bilateral upper lower lobes on auscultation. No respiratory distress. HEART: Regular rate and rhythm. No murmur heard. Normal peripheral pulses. ABDOMEN: Soft, nontender, nondistended, normal active bowel sounds. EXTREMITIES: Normal range of motion. No edema. SKIN: Warm, dry, no rash. NEURO: No focal deficits. Alert and oriented x3. Course Course Level of Care: Express Care Visit Vital Signs Vital signs: Vital Signs Temperature 36.4 C 11/17/23 08:51 Pulse Rate 99 11/17/23 08:51 Respiratory Rate 16 11/17/23 08:51 Blood Pressure 125/102 H 11/17/23 08:51 Pulse Oxim
== END 2023-11-17 09:20 | disposition home or self-care (01) ==
PROVIDERS: Emergency Provider Nurse Practitioner Family; PCP Internal Medicine
DX: J02.0 Streptococcal pharyngitis (principal); J45.909 Unspecified asthma, uncomplicated; F17.210 Nicotine dependence, cigarettes, uncomplicated; F12.90 Cannabis use, unspecified, uncomplicated; E78.5 Hyperlipidemia, unspecified
CPT/HCPCS: 87880; 99213; G0463

== ENCOUNTER 2023-12-16 09:46 | Emergency (ER) | payer OTHER, SELFPAY ==
--- NOTE | ~2023-12-16 | XR_ITS ---
EXAMINATION: XR ankle LT min 3V DATE: 12/16/2023 10:19 INDICATION: Lateral left ankle pain and swelling TECHNIQUE: Anteroposterior, oblique, mortise, and lateral views of the left ankle were obtained. COMPARISON: None. FINDINGS: Diffuse osteopenia. There are a pair of interfragmentary screws and lateral plate and screws along th e lateral malleolus for fixation of an old fracture which is healed in essentially anatomic alignment . There is also a healed medial malleolar fracture and essentially anatomic alignment which is been f ixed with a pair of cannulated lag screws. No instrumentation failure or periprosthetic lucency to moise ggest loosening or infection. No acute fracture. Subarticular lucency with sclerotic margins at the m edial rim of the talar dome which could represent either a degenerative subchondral cyst or osteochon dral lesion with intact appearing overlying cortex. Mild polyarticular osteoarthritis at several join ts in the midfoot and also suggested at the first metatarsophalangeal joint. Soft tissues are unremar kable with no ankle joint effusion. IMPRESSION: 1. Internally fixed old healed medial and lateral malleolar fractures in essentially anatomic alignme nt. No acute osseous abnormality. 2. Subarticular cystic change versus osteochondral lesion along the medial margin of the talar dome. Reviewed, dictated and finalized at location A. IMPRESSION: 1. Internally fixed old healed medial and lateral malleolar fractures in essent ially anatomic alignment. No acute osseous abnormality. 2. Subarticular cystic change versus osteochondral lesion along the medial corina in of the talar dome.
[2023-12-16 09:57] VITALS: BP 133/111; PULSE 117; RESP 16; TEMP 35.9; O2SAT 98
[2023-12-16 09:59] VITALS: BP 133/111; PULSE 117; RESP 16; TEMP 35.9; O2SAT 98
--- NOTE | 2023-12-16 10:06 | ED.EXTPRO ---
HPI - Extremity Problem General Chief complaint: Extremity Problem,Nontraumatic Stated complaint: L FOOT SWELLING Time Seen by Provider: 12/16/23 09:56 Source: patient and RN notes reviewed Mode of arrival: ambulatory Limitations: no limitations History of Present Illness HPI Narrative: Patient presents today left ankle pain and lateral swelling x3 weeks, with some mild tingling in the toes x2 weeks. Denies any known injury. Currently rates her pain 8/10 and has been taking ibuprofen and applying ice without much relief. Patient had a trimalleolar fracture in the affected ankle in July of 2022. Related Data Home Medications Medication Instructions Recorded Confirmed No Home Medications 12/16/23 12/16/23 Allergies Allergy/AdvReac Type Severity Reaction Status Date / Time No Known Allergies Allergy Verified 12/16/23 09:58 Review of Systems Review of Systems: CONSTITUTIONAL: Denies body aches, fever, chills, or sweats. EYES: Denies visual changes, redness, or discharge. ENT: Denies rhinorrhea, congestion, sore throat, or otalgia. CARDIOVASCULAR: Denies chest pain, palpitations, or edema. RESPIRATORY: Denies cough or dyspnea. GASTROINTESTINAL: Denies abdominal pain, nausea, vomiting, or diarrhea. GENITOURINARY: Denies dysuria or hematuria. SKIN: Denies rash, itching, or wounds. MUSCULOSKELETAL: Denies back pain, or myalgia.+ left ankle pain and swelling NEUROLOGIC: Denies headache, numbness, or weakness. PSYCH: Denies depression or anxiety. [facility] Past Medical History Medical History Asthma Chronic sinusitis Hyperlipidemia Tobacco use Trimalleolar fracture Surgical History Surgical History History of section Family History Family History Mother No pertinent family history Social History Social History Smoking packs per day: 0.5 Smoking cigarettes per day: 10.0 Smoking status: Current every day smoker Alcohol intake: current Alcohol use details: Reports 5-10 beers daily Substance use: current Substance use type: marijuana Other substance usage details: occasional Living arrangements: with family Gender identity (if verbalized by the patient): Female Sexual Orientation (if Verbalized by the Patient): Straight or Heterosexual Spiritual care concerns: No Comments At time of signature, I have reviewed and agree with nursing past medical, surgical, social and family history unless otherwise noted. Please see nursing chart for further information. There is no relevant family history pertinent to the presenting complaint Exam Narrative: GENERAL: Ill-appearing, well-nourished, and in no acute distress. HEAD: Normocephalic, atraumatic. EYES: EOMI. No redness or drainage. Conjunctivae normal. ENT: Mucous membranes pink and moist. NECK: Normal AROM. CHEST: No respiratory distress. EXTREMITIES: Left ankle: Mild to moderate swelling of the lateral malleolus that is mildly tender to palpation. Anterior ankle is also mildly tender to palpation. Medial ankle is nontender without edema. Distal sensation intact in all 5 toes. Capillary refill normal. Pedal pulse is strong. P ROM with pain in all directions. Color normal. No increased warmth. No calf pain or swelling. SKIN: Warm, dry, no rash. Capillary refill normal. Normal skin turgor. NEURO: No focal deficits. Alert and oriented x3. Gait steady. PSYCH: Normal affect. No signs of depression or anxiety. Course Course Level of Care: Express Care Visit Vital Signs Vital signs: Vital Signs Temperature 96.7 F L 12/16/23 09:57 Pulse Rate 117 H 12/16/23 09:57 Respiratory Rate 16 12/16/23 09:57 Blood Pressure 133/111 H 12/16/23 09:57 Pulse Oximet
[2023-12-16 10:57] VITALS: BP 127/95
== END 2023-12-16 10:57 | disposition home or self-care (01) ==
PROVIDERS: Emergency Provider Nurse Practitioner; PCP Internal Medicine
DX: S93.402A Sprain of unspecified ligament of left ankle, initial encounter (principal); X58.XXXA Exposure to other specified factors, initial encounter; J45.909 Unspecified asthma, uncomplicated; E78.5 Hyperlipidemia, unspecified; F17.210 Nicotine dependence, cigarettes, uncomplicated
CPT/HCPCS: 73610; 99213; G0463

== ENCOUNTER 2024-02-06 14:11 | Emergency (ER) | payer OTHER, SELFPAY ==
[2024-02-06 14:16] VITALS: BP 108/88; PULSE 100; RESP 16; TEMP 36.2; O2SAT 100
--- NOTE | 2024-02-06 14:26 | ED.DENTAL ---
HPI - Dental/Oral General Chief complaint: Dental/Oral Stated complaint: SORES IN MOUTH Source: patient Mode of arrival: ambulatory History of Present Illness HPI Narrative: 48-year-old female presented for complaint of sores in the mouth for almost 2 weeks. Endorses ' painful bumps on the top of the tongue and the right tonsil.' Endorses painful swallow and decreased po intake as a result. Pain radiates to right ear. Using Chloraseptic spray with temporary relief. Denies difficulty maintaining secretions, n/v/d/f/c. Complaint: tooth pain Related Data Allergies Allergy/AdvReac Type Severity Reaction Status Date / Time No Known Allergies Allergy Verified 02/06/24 14:24 Review of Systems Review of Systems: CONSTITUTIONAL: Denies body aches, fever, chills ENT: Denies rhinorrhea, congestion, sore throat, or otalgia. Reports bumps inside of the mouth CARDIOVASCULAR: Denies chest pain, palpitations RESPIRATORY: Denies cough or dyspnea. SKIN: Denies rash, itching, or wounds. MUSCULOSKELETAL: Denies myalgia. NEUROLOGIC: Denies headache, numbness, tingling, or weakness. [facility] Past Medical History Medical History Asthma Chronic sinusitis Hyperlipidemia Tobacco use Trimalleolar fracture Surgical History Surgical History History of section Family History Family History Mother No pertinent family history Social History Social History Smoking packs per day: 0.5 Smoking cigarettes per day: 10.0 Smoking status: Current every day smoker Alcohol intake: current Alcohol use details: Reports 10-12 beers daily Substance use: current Substance use type: marijuana Other substance usage details: occasional Living arrangements: with family Gender identity (if verbalized by the patient): Female Sexual Orientation (if Verbalized by the Patient): Straight or Heterosexual Spiritual care concerns: No Comments At time of signature, I have reviewed and agree with nursing past medical, surgical, social and family history unless otherwise noted. Please see nursing chart for further information. There is no relevant family history pertinent to the presenting complaint Exam Narrative: GENERAL: no acute distress. HEAD: Normocephalic, atraumatic. EYES: EOMI. No redness or drainage. Conjunctivae normal. ENT: Mucous membranes pink and moist. Right tongue and left soft palate with white patches 0.5cm. No apparent raised lesions. No bleeding. TMs normal bilaterally. Throat normal, no tonsillar enlargement or soft palate swelling. Uvula midline. Voice is not hoarse. Pt is able to maintain secretions. NECK: Normal AROM. No lymphadenopathy. No induration below mandible. CHEST: No respiratory distress. Clear to auscultation. Speaks full sentences without difficulty HEART: Regular rate and rhythm. No murmur appreciated. SKIN: Warm, dry NEURO: Alert and oriented x3. Gait steady. Course Course Emergency Course: Patient is aware of diagnosis, understands and agrees to treatment plan. Anticipatory guidance given. Patient agrees to follow-up as directed and is aware of reasons to seek care at the emergency department. Portions of this record may have been created with voice recognition software Level of Care: Express Care Visit Vital Signs Vital signs: Vital Signs Temperature 97.1 F L 02/06/24 14:16 Pulse Rate 100 02/06/24 14:16 Respiratory Rate 16 02/06/24 14:16 Blood Pressure 108/88 02/06/24 14:16 Pulse Oximetry 100 02/06/24 14:16 Temperature 97.1 F L 02/06/24 14:16 Pulse Rate 100 02/06/24 14:16 Respiratory Rate 16 02/06/24 14:16 Blood Pressure 108/88 02/06/24 14:16 Pulse Oximetry 100 02/06/24 14:16 Oxygen Delivery Room Air 08
[2024-02-06 14:53] LABS: EDSTREPNEGPOS1 Negative
== END 2024-02-06 15:15 | disposition home or self-care (01) ==
PROVIDERS: Emergency Provider Nurse Practitioner Family; PCP Internal Medicine
DX: K12.1 Other forms of stomatitis (principal); F17.210 Nicotine dependence, cigarettes, uncomplicated; F12.90 Cannabis use, unspecified, uncomplicated; J45.909 Unspecified asthma, uncomplicated; E78.5 Hyperlipidemia, unspecified
CPT/HCPCS: 87880; 99213; G0463

== ENCOUNTER 2024-03-08 11:32 | Emergency (ER) | payer OTHER, SELFPAY ==
[2024-03-08 11:47] VITALS: BP 151/95; PULSE 89; RESP 18; TEMP 36.7; O2SAT 98
--- NOTE | 2024-03-08 12:20 | ED.GENADULT ---
HPI - General Adult General Chief complaint: Unspecified Stated complaint: tongue problems, can't s wallow Time Seen by Provider: 03/08/24 12:12 History of Present Illness HPI narrative: This is a 48-year-old female presenting ED with chief complaint of mouth sores. He has been going on for 3 weeks. She was seen in urgent care at outside hospital and treated with valacyclovir with no improvement. Patient notes that she is having some pain with swallowing. She is still able to eat solids and liquids. No fevers chills nausea vomiting or diarrhea. Patient did not follow-up with ENT as instructed Related Data Allergies Allergy/AdvReac Type Severity Reaction Status Date / Time No Known Allergies Allergy Verified 03/08/24 11:46 PMFSH Past Medical History Medical History Asthma Chronic sinusitis Hyperlipidemia Tobacco use Trimalleolar fracture Surgical History Surgical History History of section Family History Family History Mother No pertinent family history Social History Social History Smoking packs per day: 0.5 Smoking cigarettes per day: 10.0 Smoking status: Current every day smoker Alcohol intake: current Alcohol use details: Reports 10-12 beers daily Substance use: current Substance use type: marijuana Other substance usage details: occasional Living arrangements: with family Gender identity (if verbalized by the patient): Female Sexual Orientation (if Verbalized by the Patient): Straight or Heterosexual Spiritual care concerns: No Exam Narrative: -Course: 48-year-old female presenting with stomatitis. She has completed a course of valacyclovir no effect. My exam she does have several minor shallow ulcerations in her mouth. She is otherwise nontoxic appearing. No signs of Paresh's angina or other emergencies. Patient will be treated with Magic mouthwash instructed to follow-up with ENT and her primary care physician. I offered to do a CT of the neck and the patient declined stating she would rather have her primary care physician to it. -DDX includes but is not limited to: -Co-morbidities complicating care: -Social determinants of health: -External Chart Review: -Hx from independent Sources: -Independent interpretation of studies: -Discussion of Management/Consultants: -Dx tests considered but not ordered: -Procedures: -Interventions: -Shared decision making / Disposition: -RX Course Vital Signs Vital signs: Vital Signs Temperature 98.1 F 03/08/24 11:47 Pulse Rate 89 03/08/24 11:47 Respiratory Rate 18 03/08/24 11:47 Blood Pressure 151/95 H 03/08/24 11:47 Pulse Oximetry 98 03/08/24 11:47 Oxygen Delivery Room Air 03/08/24 11:47 Temperature 98.1 F 03/08/24 11:47 Pulse Rate 89 03/08/24 11:47 Respiratory Rate 18 03/08/24 11:47 Blood Pressure 151/95 H 03/08/24 11:47 Pulse Oximetry 98 03/08/24 11:47 Oxygen Delivery Room Air 03/08/24 11:47 Medical Decision Making MDM Narrative Medical decision making narrative: APPEARANCE: No apparent distress. Head: Several small shallow ulcerations on the the pupil service of the right oropharynx. Also several shallow ulcerations on the soft palate. EYES: EOMI, NOSE: Atraumatic NECK: Trachea midline RESPIRATORY: No increased rate of breathing CARDIOVASCULAR: RRR, ABDOMINAL: Non-distended MUSCULOSKELETAl: No obvious deformities NEURO: Alert. Moving 4/4 extremities SKIN:: Warm, dry. Normal color PSYCHIATRIC: Normal affect Vital Signs Vital Signs: Vital Signs Temperature 98.1 F 03/08/24 11:47 Pulse Rate 89 03/08/24 11:47 Respiratory Rate 18 03/08/24 11:47 Blood Pressure 151/95 H 03/08/24 11:47 Pulse Oximetry 98 09
[2024-03-08 12:44] VITALS: BP 147/71; PULSE 70; RESP 16; TEMP 36.7; O2SAT 98
--- NOTE | 2024-03-08 13:44 | PC.NURSE ---
Pt called inquiring where RX was sent
--- NOTE | 2024-03-08 14:20 | PC.NURSE ---
Pt called in and states she needs prescription sent to another pharmacy due to the current pharmacy picked is unable to fill the prescription. Pt states I need my medicine sent to a pharmacy in [place]! . I asked a specific pharmacy name and the pt began cussing over the phone and states just a pharmacy. I explained that I needed a name of a pharmacy and the family member in the background began yelling into the phone how stupid are they to not know [facility] Explained to the pt that she can call back when they have figured out what pharmacy i could call for them.
--- NOTE | 2024-03-08 14:36 | PC.NURSE ---
Pt called in and asked if the prescription can be sent to another pharmacy. Spoke with a pharmacist and states the compound is unable to be filled at any [facility] store. Spoke with Dr Nabila cast to call in a prescriptions that the pharmacy can fill. Spoke with Cody Velazquez and gave telephone orders for magic mouthwash containing Maalox, Benadryl, and lidocaine.
== END 2024-03-08 12:47 | disposition home or self-care (01) ==
PROVIDERS: Emergency Provider Emergency Medicine; PCP Internal Medicine
DX: K12.1 Other forms of stomatitis (principal); J45.909 Unspecified asthma, uncomplicated; J32.9 Chronic sinusitis, unspecified; E78.5 Hyperlipidemia, unspecified; F17.210 Nicotine dependence, cigarettes, uncomplicated
CPT/HCPCS: 99283

== ENCOUNTER 2024-04-11 13:39 | Emergency (ER) | payer OTHER, SELFPAY ==
--- NOTE | ~2024-04-11 | CT_ITS ---
CT soft tissue neck w con Ordering provider: Eusebio Weaver PA-C History: 48 years Female with . muffled coice, sore throat, R lymph node swelling . Comparison: None. Technique: CT soft tissues neck was performed with contrast. . Automated exposure control and iterat king reconstruction technique were employed. The dose-length product was 261.68 mGy-cm. 75 mL Omnipaqu e 350 was given IV. Findings: LOWER HEAD: The visualized brain parenchyma, optic globes/orbits and mastoids are normal. Soft tissu e density is seen in the right lateral aspect of the right sphenoid sinus and right ethmoid sinus whi ch may indicate sinus disease. Follow-up advised. Right maxillary sinus disease also seen. Otherwise, The visualized paranasal sinuses are well aerated. SALIVARY GLANDS: Normal. THYROID: Normal. SUPRAHYOID DEEP SPACES: Normal. CAROTID ARTERIES: Bilateral carotid atherosclerotic changes JUGULAR VEINS: Normal. TONSILS: Normal. ORAL CAVITY: An enhancing area with central hypodensity and air seen in the right side of the tongue extending to the right tonsil which is suggestive of a necrotic mass. The possibility of abscess in t he mid tonsil extending to the tongue is not excluded. This area measures 3.8 x 2.7 cm. Necrotic mass is also seen inferior to the fibula which is most likely necrotic lymph node and measures 1.9 x 1.4 cm. PHARYNX, LARYNX AND TRACHEA: Patent and normal. No prevertebral soft tissue swelling. SUPERFICIAL SOFT TISSUES: Normal. No lymphadenopathy or neck mass. THORACIC INLET/VISUALIZED UPPER CHEST: Normal. SKELETAL: Age appropriate degenerative changes. IMPRESSION: 1. Soft tissue mass in the right posterior tongue with necrotic area. Possibility of tonsillar absce ss extending to the bases less likely. Further evaluation advised. Enlarged necrotic lymph node is al so seen in the area inferior to the right parotid the gland. Reviewed, dictated and finalized at location A. IMPRESSION: 1. Soft tissue mass in the right posterior tongue with necrotic area. Possibil ity of tonsillar abscess extending to the bases less likely. Further evaluation advised. Enlarged necrotic lymph node is also seen in the area inferior to the right parotid the gland.
[2024-04-11 14:10] VITALS: BP 145/99; PULSE 96; RESP 18; TEMP 36.4; O2SAT 100
--- NOTE | 2024-04-11 14:22 | ED_ITS ---
HPI - General Adult General Chief complaint: Unspecified <Eusebio Weaver PA-C - Last Filed: 04/11/24 14:25> Stated complaint: sores in mouth [id number] <Eusebio Weaver PA-C - Last Filed: 04/11/24 14:25> Time Seen by Provider: 04/11/24 14:21 <Eusebio Weaver PA-C - Last Filed: 04/11/24 14:25> Focused HPI: This is a 48 year old female who presents to the ED for chief complaint of sores in the mouth x2 months. Reports that she has been diagnosed with stomatitis before and was told to follow-up with ENT but got co nflicting information to follow-up with her PCP so she has not seen ENT. States that she is now having pain into the right upper teeth. She feels that she has sores on the right side of the mouth. She has been trying Chloraseptic and Magic mouthwash which do have some relief. She states that she now feels the throat is becoming more sore and having pain into the right side of her face. Also reports that she feels the right side of her throat is swollen. GENERAL: Well-appearing, well-nourished, and in no acute distress. HEAD: Normocephalic, atraumatic. ENT: Mild lymph node swelling right submandibular. No significant ulceration seen in the buccal mucosa. CHEST: Clear to auscultation. No respiratory distress. HEART: Regular rate and rhythm. NEURO: Alert and oriented x3. Patient screened in triage and initial orders placed. Additional care and disposition to be based upon diagnostic testing and treatment. <Eusebio Weaver PA-C - Last Filed: 04/11/24 14:25> Source: patient <LEONOR Bermudez Last Filed: 04/11/24 14:25> Mode of arrival: ambulatory <Eusebio Weaver PA-C - Last Filed: 04/11/24 14:25> Limitations: no limitations <LEONOR Bermudez Last Filed: 04/11/24 14:25> History of Present Illness HPI narrative: Agree the HPI. Nonhealing ulcer right posterior tongue with submandibular lymphadenopathy. Has some difficulty eating because she bites the mass with her tooth. Initially a told she might have oral herpes then stomatitis. <Erik Holliday MD - Last Filed: 04/11/24 18:41> Related Data Allergies/adverse reactions: Allergies Allergy/AdvReac Type Severity Reaction Status Date / Time No Known Allergies Allergy Verified 04/11/24 13:41 <Eusebio Weaver PA-C - Last Filed: 04/11/24 14:25> Review of Systems Review of Systems: All systems reviewed & are unremarkable except as noted in HPI and below <Erik Holliday MD - Last Filed: 04/11/24 18:41> Constitutional: Constitutional: Reports no additional constitutional complaints <Erik Holliday MD - Last Filed: 04/11/24 18:41> ENT: Reports mouth lesions, Reports mouth pain and Reports sore throat <Erik Holliday MD - Last Filed: 04/11/24 18:41> Cardiovascular: Cardiovascular: Reports no additional cardiovascular complaints <Erik Holliday MD - Last Filed: 04/11/24 18:41> Respiratory: Respiratory: Reports no additional respiratory complaints <Erik Holliday MD - Last Filed: 04/11/24 18:41> Gastrointestinal: Gastrointestinal: Reports no additional gastrointestinal complaints <Erik Holliday MD - Last Filed: 04/11/24 18:41> PMFSH Past Medical History Medical History: Medical History Asthma Chronic sinusitis Hyperlipidemia Tobacco use Trimalleolar fracture <Eusebio Weaver PA-C - Last Filed: 04/11/24 14:25> Surgical History Surgical History: Surgical History History of section <Eusebio Weaver PA-C - Last Filed: 04/11/24 14:25> Family History Family History: Family History Mother No pertinent family history <Eusebio Weaver PA-C - Last Filed: 04/11/24 14:25> Social History Social History: Social History Smoking packs per day: 0.5 Smoking cigarettes per day: 10.0 Smoking status: Current every day smoker Alcohol intake: current Alcohol use details: Reports 10-12 beers daily Substance use: current Substance use type: marijuana Other substance usage details: occasional Living arrangements: with family Gender identity (if verbalized by the patient): Female Sexual Orientation (if Verbalized by the Patient): Straight or Heterosexual Spiritual care concerns: No <Eusebio Weaver PA-C - Last Filed: 04/11/24 14:25> Exam Narrative: GENERAL: Well-appearing, well-nourished, and in no acute distress. HEAD: Normocephalic, atraumatic. ENT: Mucous membranes moist. For mass with ulceration lateral posterior right tongue. No deviation of the tongue once taking it out. Mild ulcerations of the soft palate bilaterally. NECK: Supple. Right submandibular lymphadenopathy. CHEST: Clear to auscultation. No respiratory distress. HEART: Regular rate and rhythm. Normal peripheral pulses. EXTREMITIES: Normal range of motion. No edema. SKIN: Warm, dry, no rash. NEURO: Alert and oriented x3. PSYCH: Normal mood and affect. <Erik Holliday MD - Last Filed: 04/11/24 18:41> Course Course Emergency Course: Patient informed of concern for or pharyngeal cancer seen on imaging study. ENT contacted and recommends outpatient biopsy and then most likely referral to [facility] for treatment. I have touched base with Dr. Beckford's on-call [employer] who is going to send message to him. D/c home. <Erik Holliday MD - Last Filed: 04/11/24 18:41> Vital Signs Vital signs: Vital Signs Temperature 97.6 F 04/11/24 14:10 Pulse Rate 96 04/11/24 14:10 Respiratory Rate 18 04/11/24 14:10 Blood Pressure 145/99 H 04/11/24 14:10 Pulse Oximetry 100 04/11/24 14:10 Temperature 97.6 F 04/11/24 14:10 Pulse Rate 96 04/11/24 14:10 Respiratory Rate 18 04/11/24 14:10 Blood Pressure 145/99 H 04/11/24 14:10 Pulse Oximetry 100 04/11/24 14:10 <Eusebio Weaver PA-C - Last Filed: 04/11/24 14:25> Vital Signs Temperature 97.6 F 04/11/24 14:10 Pulse Rate 96 04/11/24 14:10 Respiratory Rate 18 04/11/24 14:10 Blood Pressure 145/99 H 04/11/24 14:10 Pulse Oximetry 100 04/11/24 14:10 Temperature 97.6 F 04/11/24 14:10 Pulse Rate 96 04/11/24 14:10 Respiratory Rate 18 04/11/24 14:10 Blood Pressure 145/99 H 04/11/24 14:10 Pulse Oximetry 100 04/11/24 14:10 <Erik Holliday MD - Last Filed: 04/11/24 18:41> Medical Decision Making Vital Signs Vital Signs: Vital Signs Temperature 97.6 F 04/11/24 14:10 Pulse Rate 96 04/11/24 14:10 Respiratory Rate 18 04/11/24 14:10 Blood Pressure 145/99 H 04/11/24 14:10 Pulse Oximetry 100 04/11/24 14:10 Temperature 97.6 F 04/11/24 14:10 Pulse Rate 96 04/11/24 14:10 Respiratory Rate 18 04/11/24 14:10 Blood Pressure 145/99 H 04/11/24 14:10 Pulse Oximetry 100 04/11/24 14:10 <Eusebio Weaver PA-C - Last Filed: 04/11/24 14:25> Vital Signs Temperature 97.6 F 04/11/24 14:10 Pulse Rate 96 04/11/24 14:10 Respiratory Rate 18 04/11/24 14:10 Blood Pressure 145/99 H 04/11/24 14:10 Pulse Oximetry 100 04/11/24 14:10 Temperature 97.6 F 04/11/24 14:10 Pulse Rate 96 04/11/24 14:10 Respiratory Rate 18 04/11/24 14:10 Blood Pressure 145/99 H 04/11/24 14:10 Pulse Oximetry 100 04/11/24 14:10 <Erik Holliday MD - Last Filed: 04/11/24 18:41> Lab Data Result diagrams: 04/11/24 15:22 04/11/24 15:22 <Eusebio Weaver PA-C - Last Filed: 04/11/24 14:25> Labs: Lab Results 04/11/24 Range/Units 15:22 WBC 6.8 (4.5-10.0) K/mm3 RBC 3.94 L (4.2-5.4) M/mm3 Hgb 15.1 H (12.0-15.0) g/dL Hct 43.4 (37.0-47.0) % MCV 110.2 H (80-100) fl MCH 38.3 H (26-34) pg MCHC 34.8 (32-36) g/dl RDW 12.6 (11.5-14.5) % Plt Count 139 L (150-375) k/mm3 MPV 11.2 H (7.4-10.4) fl Immature Gran % (Auto) 0.1 (0-0.5) % Neut % (Auto) 51.1 (45.5-73.1) % Lymph % (Auto) 38.7 (18.3-44.2) % [place] % (Auto) 7.9 (2.6-8.5) % Eos % (Auto) 1.2 (0-4.4) % Baso % (Auto) 1.0 (0.2-1.2) % Lymph # (Auto) 2.64 (0.9-3.2) K/mm3 [place] # (Auto) 0.5 (0.1-0.6) K/mm3 Eos # (Auto) 0.1 (0-0.3) K/mm3 Baso # (Auto) 0.1 (0.0-0.1) K/mm3 Abs Immat Gran (auto) 0.01 (0.00-0.031) K/mm3 Absolute Neuts (auto) 3.5 (1.3-6.7) K/mm3 Absolute Nucleated RBC 0.000 (0.0-0.012) K/mm3 Nucleated RBC % 0.0 (0.0-0.2) % % Immature Plt Fraction 9.7 (0.9-11.2) % Sodium 134 L (137-145) mmol/L Potassium 4.2 (3.4-5.0) mmol/L Chloride 96 L (98-107) mmol/L Carbon Dioxide 24 (22-30) mmol/L Anion Gap 14 H (4-12) mmol/L BUN 3 L D (7-17) mg/dL Creatinine 0.40 L (0.7-1.0) mg/dL Estim Creat Clear Calc Not Reportable Estimated GFR > 60 (59 - ) Glucose 91 (65-110) mg/dL Calcium 9.4 (8.4-10.2) mg/dL Total Bilirubin 0.5 (0.2-1.3) mg/dL AST 84 H (14-36) U/L ALT 38 H (6-35) U/L Alkaline Phosphatase 178 H (38-126) U/L Total Protein 8.0 (6.3-8.2) g/dL Albumin 4.3 (3.5-5.1) g/dL <Eusebio Weaver PA-C - Last Filed: 04/11/24 14:25> Lab Results 04/11/24 Range/Units 15:22 WBC 6.8 (4.5-10.0) K/mm3 RBC 3.94 L (4.2-5.4) M/mm3 Hgb 15.1 H (12.0-15.0) g/dL Hct 43.4 (37.0-47.0) % MCV 110.2 H (80-100) fl MCH 38.3 H (26-34) pg MCHC 34.8 (32-36) g/dl RDW 12.6 (11.5-14.5) % Plt Count 139 L (150-375) k/mm3 MPV 11.2 H (7.4-10.4) fl Immature Gran % (Auto) 0.1 (0-0.5) % Neut % (Auto) 51.1 (45.5-73.1) % Lymph % (Auto) 38.7 (18.3-44.2) % [place] % (Auto) 7.9 (2.6-8.5) % Eos % (Auto) 1.2 (0-4.4) % Baso % (Auto) 1.0 (0.2-1.2) % Lymph # (Auto) 2.64 (0.9-3.2) K/mm3 [place] # (Auto) 0.5 (0.1-0.6) K/mm3 Eos # (Auto) 0.1 (0-0.3) K/mm3 Baso # (Auto) 0.1 (0.0-0.1) K/mm3 Abs Immat Gran (auto) 0.01 (0.00-0.031) K/mm3 Absolute Neuts (auto) 3.5 (1.3-6.7) K/mm3 Absolute Nucleated RBC 0.000 (0.0-0.012) K/mm3 Nucleated RBC % 0.0 (0.0-0.2) % % Immature Plt Fraction 9.7 (0.9-11.2) % Sodium 134 L (137-145) mmol/L Potassium 4.2 (3.4-5.0) mmol/L Chloride 96 L (98-107) mmol/L Carbon Dioxide 24 (22-30) mmol/L Anion Gap 14 H (4-12) mmol/L BUN 3 L D (7-17) mg/dL Creatinine 0.40 L (0.7-1.0) mg/dL Estim Creat Clear Calc Not Reportable Estimated GFR > 60 (59 - ) Glucose 91 (65-110) mg/dL Calcium 9.4 (8.4-10.2) mg/dL Total Bilirubin 0.5 (0.2-1.3) mg/dL AST 84 H (14-36) U/L ALT 38 H (6-35) U/L Alkaline Phosphatase 178 H (38-126) U/L Total Protein 8.0 (6.3-8.2) g/dL Albumin 4.3 (3.5-5.1) g/dL <Erik Holliday MD - Last Filed: 04/11/24 18:41> Imaging Data Radiologist's impression: ITS Impressions Soft Tissue Neck CT 04/11/24 17:51 IMPRESSION: 1. Soft tissue mass in the right posterior tongue with necrotic area. Possibility of tonsillar abscess extending to the bases less likely. Further evaluation advised. Enlarged necrotic lymph node is also seen in the area inferior to the right parotid the gland. <Erik Holliday MD - Last Filed: 04/11/24 18:41> Discharge Plan Discharge Clinical Impression: Tongue mass <Eusebio Weaver PA-C - Last Filed: 04/11/24 14:25> Patient Disposition: Home, Self-Care <Eusebio Weaver PA-C - Last Filed: 04/11/24 14:25> Condition: Stable <Eusebio Weaver PA-C - Last Filed: 04/11/24 14:25> Instructions: Oropharyngeal Cancer (DC) <Eusebio Weaver PA-C - Last Filed: 04/11/24 14:25> Additional Instructions: It is suspected you may have a cancer to the right side of your tongue. You need to follow-up with ENT for biopsy. You also need to follow-up with your primary care doctor. Return the ER if you cannot breathe, you cannot swallow, or you have additional concerns. <Eusebio Weaver PA-C - Last Filed: 04/11/24 14:25> Prescriptions: New lidocaine HCl [Lidocaine Viscous] 2 % solution 1 applic mucous membrane QID PRN (Reason: pain) Qty: 100 0RF hydrocodone-acetaminophen 5-325 mg tablet 1 tablet PO Q6H PRN (Reason: pain) Qty: 20 0RF No Action valacyclovir [Valtrex] 1 gram tablet 2,000 mg PO Q12H 1 Days Qty: 4 0RF lidocaine HCl [Lidocaine Viscous] 2 % solution 1 applic mucous membrane TID PRN (Reason: pain) Qty: 100 0RF Rx Instructions: apply with cotton swab to site of pain <Eusebio Weaver PA-C - Last Filed: 04/11/24 14:25> Follow-up/Referrals: Rohit Harman MD [Physician] - 1 Week Beckford,Chato Billingsley MD [Primary Care Provider] - 1 Week <Eusebio Weaver PA-C - Last Filed: 04/11/24 14:25>
[2024-04-11 15:33] LABS: Basophils Absolute Auto 0.1 K/mm3 (0.0-0.1); Eosinophils Absolute Auto 0.1 K/mm3 (0-0.3); Eosinophils Percent Auto 1.2 % (0-4.4); Hematocrit 43.4 % (37.0-47.0); Hemoglobin 15.1 g/dL (12.0-15.0); Immature Granulocyte Absolute 0.01 K/mm3 (0.00-0.031); Immature Granulocyte Percent A 0.1 % (0-0.5); Immature Platelet Fraction Pct 9.7 % (0.9-11.2); Lymphocytes Absolute Auto 2.64 K/mm3 (0.9-3.2); Lymphocytes Percent Auto 38.7 % (18.3-44.2); Mean Corpuscular HGB Conc 34.8 g/dl (32-36); Mean Corpuscular Hemoglobin 38.3 pg (26-34); Mean Corpuscular Volume 110.2 fl (80-100); Mean Platelet Volume 11.2 fl (7.4-10.4); Monocytes Absolute Auto 0.5 K/mm3 (0.1-0.6); Monocytes Percent Auto 7.9 % (2.6-8.5); Neutrophils Absolute Auto 3.5 K/mm3 (1.3-6.7); Neutrophils Percent Auto 51.1 % (45.5-73.1); Platelet Count Result 139 k/mm3 (150-375); Red Blood Count 3.94 M/mm3 (4.2-5.4); Red Cell Distribution Width 12.6 % (11.5-14.5); White Blood Count 6.8 K/mm3 (4.5-10.0)
[2024-04-11 15:51] LABS: Alanine Aminotransferase 38 U/L (6-35); Albumin Level 4.3 g/dL (3.5-5.1); Alkaline Phosphatase 178 U/L (38-126); Anion Gap 14 mmol/L (4-12); Aspartate Amino Transferase 84 U/L (14-36); Bilirubin,Total 0.5 mg/dL (0.2-1.3); Blood Urea Nitrogen 3 mg/dL (7-17); Calcium 9.4 mg/dL (8.4-10.2); Carbon Dioxide 24 mmol/L (22-30); Chloride 96 mmol/L (98-107); Estimated Glomerular Filt Rate > 60; Glucose 91 mg/dL (65-110); Potassium 4.2 mmol/L (3.4-5.0); Sodium 134 mmol/L (137-145)
[2024-04-11] MEDS: HYDROcodone/acetaminophen (*CRX) 5-325 MG TABLET 1 TAB PO (18:39)
[2024-04-11 19:16] VITALS: BP 152/95; PULSE 92; RESP 20; O2SAT 98
== END 2024-04-11 18:58 | disposition home or self-care (01) ==
PROVIDERS: Physician Assistant; Emergency Provider Emergency Medicine; PCP Internal Medicine
DX: K14.9 Disease of tongue, unspecified (principal); J45.909 Unspecified asthma, uncomplicated; J32.9 Chronic sinusitis, unspecified; F17.210 Nicotine dependence, cigarettes, uncomplicated
CPT/HCPCS: 36415; 70491; 80053; 85025; 85055; 99284; A9270; Q9967